=== PATIENT | male | born 1965 | race Caucasian/White ===

== ENCOUNTER → 2021-08-26 | Emergency (ER) | payer MEDICAID ==
[~2021-08-26] VITALS: Ht 167.6 cm; Wt 72.6 kg
[2021-08-26 20:13] VITALS: BP_SYST 140
[2021-08-26 20:31] VITALS: BP_SYST 137
== END ==
LOC: SED 19:58
DX: I10 Essential (primary) hypertension (principal); F12.90 Cannabis use, unspecified, uncomplicated; F15.90 Other stimulant use, unspecified, uncomplicated; F17.210 Nicotine dependence, cigarettes, uncomplicated
CPT/HCPCS: 99283